=== PATIENT | female | born 1950 | race Caucasian/White ===

== ENCOUNTER 2018-04-14 11:32 | Emergency (ER) | payer OTHER ==
[2018-04-14 11:45] VITALS: TEMP 97.6; BMI 32.3
--- NOTE | 2018-04-14 12:12 | PDOC ---
History of Present Illness - History of Present Illness Initial Comments: 04/14/18 13:49 The patient is a 68 year old female, from [facility], with a significant PMH of seizure on Carbamazepine, last seizure was one year ago who presents to the ER s/p witnessed seizure early this morning. The aide is at bedside and providing the history as pt is nonverbal at baseline. As per the aide, the patient was sitting in a chair during breakfast and her eyes began rolling to the back of head. The episode was witnessed and the patient lost consciousness for 40 seconds but denies seeing any rani tonic clonic activities. Patient also had urinary incontinence. No falls. Patient is compliant to her Carbamazepine. Unknown if symptoms today are similar to her typical seizure. Patient is nonverbal at baseline but currently is at her normal baseline ( looking around, will respond to your basic requests) No apparent chest pain, shortness of breath, headache and dizzines, fever, chills, nausea, vomit, diarrhea and constipation. Allergies: NKA Past surgical history: None reported. Social history: No reported alcohol, drug, or cigarette use. <Digna Cruz - Last Filed: 04/14/18 13:48> - General History Source: Care Provider, EMS Exam Limitations: Physical Impairment <Brendan Aguilera - Last Filed: 04/14/18 16:15> - General Chief Complaint: Seizure Stated Complaint: SEIZURE Time Seen by Provider: 04/14/18 11:44 Past History <Digna Cruz - Last Filed: 04/14/18 13:48> - Past Medical History Hypercholesterolemia: Yes Seizures: Yes - Suicide/Smoking/Psychosocial Hx Smoking Status: No Smoking History: Unknown if ever smoked Have you smoked in the past 12 months: No Number of Cigarettes Smoked Daily: 0 Cigars Per Day: 0 Information on smoking cessation initiated: No Hx Alcohol Use: No Drug/Substance Use Hx: No Substance Use Type: None <Brendan Aguilera - Last Filed: 04/14/18 16:15> - Past Medical History Allergies/Adverse Reactions: Allergies Allergy/AdvReac Type Severity Reaction Status Date / Time Phenothiazines Allergy Intermediate Verified 04/14/18 12:58 Home Medications: Ambulatory Orders Docusate Sodium [Colace -] 100 mg PO BID 07/12/12 Famotidine [Pepcid -] 20 mg PO BID 07/12/12 Risperidone [Risperdal] 1 mg PO DAILY 07/12/12 Carbamazepine Xr [Tegretol XR -] 200 mg PO BID #0 tab.er.12h 07/13/12 Cholecalciferol (Vitamin D3) [Vitamin D3 -] 1,000 unit PO DAILY 01/11/18 Ibuprofen 400 mg PO TID 01/11/18 Review of Systems - Review of Systems Able to Perform ROS?: No Comments:: 04/14/18 13:49 History limited due to pt being nonverbal. <Digna Cruz - Last Filed: 04/14/18 13:48> *Physical Exam - Vital Signs Last Vital Signs Temp Pulse Resp BP Pulse Ox 97.6 F 67 16 106/73 96 04/14/18 11:39 04/14/18 11:39 04/14/18 11:39 04/14/18 11:39 04/14/18 11:39 - Physical Exam Comments: 04/14/18 13:51 GENERAL: The patient is awake, alert, Nontoxic - in no acute distress. HEAD: Normocephalic, atraumatic. EYES: extraocular movements intact, sclera anicteric, conjunctiva clear. ENT: Normal voice, Moist mucous membranes. NECK: Normal range of motion, supple LUNGS: Breath sounds equal, clear to auscultation bilaterally. No wheezes, no rhonchi, no rales. HEART: Regular rate and rhythm, normal S1 and S2 without murmur, rub or gallop. ABDOMEN: Soft, nontender, normoactive bowel sounds. No guarding, no rebound. No CVA tenderness EXTREMITIES: Normal range of motion, no edema. NEUROLOGICAL: No facial assymetry, movng all 5 extremities sponaneously and symmetrically, PSYCH: unable to asess SKIN: Warm, Dry, normal turgor, <Digna Cruz - Last Filed: 04/14/18 13:48> - Vital Signs Last Vital Signs Temp Pulse Resp BP Pulse Ox 97.6 F 67 16 106/73 96 04/14/18 11:39 04/14/18 11:39 04/14/18 11:39 04/14/18 11:39 04/14/18 11:39 <Brendan Aguliera - Last Filed: 04/14/18 16:15> Heart Score/ECG Review - ECG Impressions Comment:: 04/14/18 12:46 Twelve-lead EKG was performed and reviewed by me. There is normal sinus rhythm with a normal rate. Rate of 68 The axis is normal. The intervals are normal. There is normal R wave progression There are no ST or T wave abnormalities. Impression: Normal twelve-lead EKG <Brendan Aguilera - Last Filed: 04/14/18 16:15> ED Treatment Course - LABORATORY CBC & Chemistry Diagram: 04/14/18 12:24 04/14/18 12:52 - ADDITIONAL ORDERS Additional order review: Laboratory Results 04/14/18 12:52 Sodium 143 Potassium 3.7 Chloride 107 Carbon Dioxide 31 Anion Gap 5 L BUN 9 Creatinine 0.6 Creat Clearance w eGFR > 60 Random Glucose 159 H Calcium 8.7 Total Bilirubin < 0.1 L AST 9 L ALT 19 Alkaline Phosphatase 115 Total Protein 6.3 L Albumin 3.1 L 04/14/18 12:24 RBC 4.03 MCV 91.4 MCHC 32.8 RDW 13.2 MPV 8.3 Neutrophils % 62.3 D Lymphocytes % 23.1 D Monocytes % 8.4 Eosinophils % 5.9 H D Basophils % 0.3 <Digna Cruz - Last Filed: 04/14/18 13:48> - LABORATORY CBC & Chemistry Diagram: 04/14/18 12:24 04/14/18 12:52 <Brendan Aguilera - Last Filed: 04/14/18 16:15> Medical Decision Making - Medical Decision Making 04/14/18 12:12 68y F hx of seizures (last one 1 year ago, on carbamazepine) pw witnessed seizure lasting approx 40 seconds where her eyes rolled back but no notable convulsions. , with post ictal period per ems. +urinary incontinence. pt currently back at baseline. per aide, pt is compliant with her meds that are given to her. no notable infectious complaints recently. pts exam is baseline, neuro baseline will obtain blood work to r/o metabolic dernagement, ua to ro occult infection willobserve will dw pmd 04/14/18 16:13 pts labs reviewed unremarkable pt at baseline status case dw dr. Ahuja agree with management will have pt fu with her primary neurologist tegratol level sent return precautions were discussed I discussed the physical exam findings, ancillary test results and final diagnoses with the patient. I answered all of the patient's questions. The patient was satisfied with the care received and felt comfortable with the discharge plan and treatment plan. The patient will call their primary care physician within 24 hours to arrange follow-up and will return to the Emergency Department with any new, persistent or worsening symptoms. <Brendan Aguilera - Last Filed: 04/14/18 16:15> *DC/Admit/Observation/Transfer - Attestations Scribe Attestion: 04/14/18 13:51 Documentation prepared by Digna Cruz, acting as medical device engineer for Brendan Aguilera MD. <Digna Cruz - Last Filed: 04/14/18 13:48> - Discharge Dispostion Decision to Admit order: No <Brendan Aguilera - Last Filed: 04/14/18 16:15> Diagnosis at time of Disposition: Seizure - Discharge Dispostion Disposition: HOME Condition at time of disposition: Improved - Referrals Referrals: Ariana Ahuja MD [Staff Physician] - Bebo Barney MD [Staff Physician] - - Patient Instructions Printed Discharge Instructions: DI for Seizure Disorder -- Adult Additional Instructions: Return to the emergency department immediately with ANY new, persistent or worsening symptoms including any change from [place] as baseline mental status or other seizures. You MUST call and follow up with your doctor and neurologist next week for further evaluation of your symptoms. Results were discussed with you. Please make sure your doctor reviews the results of your emergency evaluation. Print Language: MALDIVIAN
[2018-04-14 12:59] LABS: BASO % 0.3 % (0-2.0); EOS % 5.9 % (0-4.5); HEMATOCRIT 36.8 % (32.4-45.2); HEMOGLOBIN 12.1 GM/dL (10.7-15.3); LYMPH % 23.1 % (8-40); MCHC 32.8 g/dl (32.0-36.0); MEAN CELL VOLUME 91.4 fl (80-96); MEAN PLT VOLUME 8.3 fl (7.5-11.1); MONO % 8.4 % (3.8-10.2); NEUT % 62.3 % (42.8-82.8); PLATELET COUNT 172 K/MM3 (134-434); RBC 4.03 M/mm3 (3.60-5.2); RDW 13.2 % (11.6-15.6); WHITE BLOOD COUNT 4.4 K/mm3 (4.0-10.0)
[2018-04-14 13:24] LABS: ALBUMIN 3.1 g/dl (3.4-5.0); ALK PHOS 115 U/L (45-117); ANION GAP 5 (8-16); BILIRUBIN,TOTAL < 0.1 mg/dL (0.2-1.0); BLOOD UREA NITROGEN 9 mg/dL (7-18); CALCIUM 8.7 mg/dL (8.5-10.1); CHLORIDE 107 mmol/L (98-107); CO2 31 mmol/L (21-32); CREATININE 0.6 mg/dL (0.55-1.02); GLUCOSE,RANDOM 159 mg/dL (74-106); POTASSIUM 3.7 mmol/L (3.5-5.1); SGOT/AST 9 U/L (15-37); SGPT/ALT 19 U/L (12-78); SODIUM 143 mmol/L (136-145); TOT PROT 6.3 g/dl (6.4-8.2)
[2018-04-14 15:21] LABS: URINE APPEARANCE CLEAR; URINE BILIRUBIN NEGATIVE (<2.0 mg/dL); URINE COLOR YELLOW; URINE GLUCOSE (UA) NEGATIVE (NEGATIVE); URINE KETONE NEGATIVE (NEGATIVE); URINE LEUK ESTERASE NEGATIVE (NEGATIVE); URINE NITRITE NEGATIVE (NEGATIVE); URINE UROBILINOGEN NEGATIVE mg/dL (0.2-1.0)
[2018-04-14 15:28] LABS: URINE PROTEIN 1+ (NEGATIVE)
[2018-04-14 15:31] LABS: EPI CELLS RARE /HPF (FEW); URINE BACTERIA FEW /hpf (NONE SEEN); URINE MUCUS RARE
[2018-04-14 16:24] VITALS: BP 106/68; PULSE 78
--- NOTE | 2018-04-15 08:58 | EKG ---
Test Reason : Blood Pressure : / mmHG Vent. Rate : 068 BPM Atrial Rate : 068 BPM P-R Int : 162 ms QRS Dur : 086 ms QT Int : 398 ms P-R-T Axes : 044 027 026 degrees QTc Int : 423 ms NORMAL SINUS RHYTHM NORMAL ECG WHEN COMPARED WITH ECG OF 13-JUL-2012 11:36, NO SIGNIFICANT CHANGE WAS FOUND Confirmed by VIPUL BANGURA MD ([id number]) on 04/15/2018 8:58:09 AM Referred By: Confirmed By:VIPUL BANGURA MD
== END 2018-04-14 16:22 | disposition home or self-care (01) ==
LOC: JER 11:32
DX: R56.9 Unspecified convulsions (principal)
CPT/HCPCS: 36415; 71045-TC-FY; 71046-TC-FY; 80053; 80156; 81003; 81015; 85025; 87086; 93005; 93010; 99284-25

== ENCOUNTER 2018-04-18 10:06 | Day surgery (SDC) | payer OTHER ==
[2018-04-17 11:19] VITALS: BMI 32.5
[2018-04-18 12:13] VITALS: TEMP 97.4
[2018-04-18 12:16] VITALS: BP 115/85; PULSE 77
== END 2018-04-18 12:30 | disposition home or self-care (01) ==
LOC: FASU-ENDO 10:06
PROVIDERS: ATTEND Internal Medicine Gastroenterology
PROC: 0DJD8ZZ Inspection of Lower Intestinal Tract, Via Natural or Artificial Opening Endoscopic (ICD-10-PCS; principal; 2018-04-18 11:21)
DX: Z12.11 Encounter for screening for malignant neoplasm of colon (principal); K64.8 Other hemorrhoids

== ENCOUNTER 2018-10-24 11:09 | Emergency (ER) | payer OTHER ==
[2018-10-24 11:18] VITALS: TEMP 97.8; BMI 32.3
--- NOTE | 2018-10-24 11:37 | PDOC ---
History of Present Illness - General Chief Complaint: Blood Pressure Problem Stated Complaint: BROUGHT IN FOR EVALUATION OF BLOOD PRESSURE Time Seen by Provider: 10/24/18 11:13 - History of Present Illness Initial Comments: 10/24/18 12:20 Chief complaint: Low blood pressure History of present illness: Patient is a resident of a [facility], and the staff noted this morning that her blood pressure was low. Reading upon awakening was 70/50, which improved to approximately 90/70. However this is lower than her usual, which ranges in the 120/80 range. The patient appears to be asymptomatic. There is been no vomiting or diarrhea. She is taking oral food and fluids adequately. Review of systems: The patient is mentally challenged but able to adequately communicate and denies pain or other symptoms Past medical history: Mental retardation, behavioral problems, Social history: Resident of [facility], stable environment, functions well, no tobacco alcohol or drugs Family history: Unavailable Physical exam: Patient is cheerful and cooperative, however, she is mentally challenged and confused as to place and time Afebrile, vital signs are now normal including orthostatic blood pressure and pulse readings HEENT clear. PERRLA. Fundi benign Neck supple without bruit mass or nodes Chest clear with full breath sounds throughout bilaterally CV regular without murmur rub or gallop pulses full and symmetric no JVD or edema no bruits Abdomen nondistended. Bowel sounds normal. Soft without mass tenderness organomegaly Neurological C2 to 12 intact. Strength full and symmetric. No focal sensory or motor deficits. Gait stable and unimpaired Impression: Transiently low blood pressure which is improved. No orthostatic changes at present, although there may be mild dehydration that resulted in blood pressure changes upon awakening Plan: Reassure. Adequate fluid intake and good nutrition. Recheck if further symptoms. Patient ambulatory and in no pain or other distress upon discharge with caregiver to follow-up as needed. Past History - Past Medical History Allergies/Adverse Reactions: Allergies Allergy/AdvReac Type Severity Reaction Status Date / Time Phenothiazines Allergy Intermediate Verified 04/14/18 12:58 Home Medications: Ambulatory Orders Docusate Sodium [Colace -] 100 mg PO BID 07/12/12 Famotidine [Pepcid -] 20 mg PO BID 07/12/12 Risperidone [Risperdal] 2 mg PO HS 07/12/12 Carbamazepine Xr [Tegretol XR -] 200 mg PO BID #0 tab.er.12h 07/13/12 Cholecalciferol (Vitamin D3) [Vitamin D3 -] 1,000 unit PO DAILY 01/11/18 Ibuprofen 400 mg PO TID 01/11/18 Ammonium Lactate Cream [Lac-Hydrin 12% *Cream*] 1 applic TP DAILY 10/24/18 Diclofenac Sodium [Diclofenac Sodium ER] 100 mg PO DAILY 10/24/18 Risperidone [Risperdal] 1 mg PO DAILY 10/24/18 Anemia: No Asthma: No Cancer: No Cardiac Disorders: No CVA: No COPD: No CHF: No Dementia: No Diabetes: No GI Disorders: No Disorders: No HTN: No Hypercholesterolemia: Yes Liver Disease: No Seizures: Yes Thyroid Disease: No Other medical history: OBESITY ,DEAFNESS, MOOD DISORDER, NON VERBAL MENTAL RETARDATION - Surgical History Cardiac Surgery: No Cholecystectomy: No GI Surgery: No Orthopedic Surgery: Yes (KNEE REPLACEMENT 2004) - Immunization History Immunization Up to Date: No - Suicide/Smoking/Psychosocial Hx Smoking Status: No Smoking History: Never smoked Have you smoked in the past 12 months: No Number of Cigarettes Smoked Daily: 0 Cigars Per Day: 0 Information on smoking cessation initiated: No Hx Alcohol Use: No Drug/Substance Use Hx: No Substance Use Type: None Hx Substance Use Treatment: No *Physical Exam - Vital Signs Last Vital Signs Temp Pulse Resp BP Pulse Ox 97.8 F 84 20 128/77 97 10/24/18 11:11 10/24/18 11:11 10/24/18 11:11 10/24/18 11:11 10/24/18 11:11 Moderate Sedation - Procedure Monitoring Vital Signs: Procedure Monitoring Vital Signs Temperature 97.8 F 10/24/18 11:11 Pulse Rate 84 10/24/18 11:11 Respiratory Rate 20 10/24/18 11:11 Blood Pressure 128/77 10/24/18 11:11 O2 Sat by Pulse Oximetry (%) 97 10/24/18 11:11 *DC/Admit/Observation/Transfer Diagnosis at time of Disposition: Blood pressure instability - Discharge Dispostion Disposition: HOME Condition at time of disposition: Improved Decision to Admit order: No - Referrals Referrals: Ariana Ahuja MD [Primary Care Provider] - 1 week - Patient Instructions Printed Discharge Instructions: How to Monitor Your Blood Pressure at Home Additional Instructions: Increase oral fluids, encourage good nutrition, observe. Recheck if further symptoms. - Post Discharge Activity
[2018-10-24 11:51] VITALS: BP 114/78; PULSE 85
== END 2018-10-24 12:03 | disposition home or self-care (01) ==
LOC: FER 11:09
DX: I99.8 Other disorder of circulatory system (principal); E66.9 Obesity, unspecified; Z68.32 Body mass index [BMI] 32.0-32.9, adult; Z96.659 Presence of unspecified artificial knee joint; H91.90 Unspecified hearing loss, unspecified ear; F79 Unspecified intellectual disabilities
CPT/HCPCS: 99281-25

== ENCOUNTER 2019-09-29 00:53 | Emergency (ER) | payer OTHER ==
--- NOTE | 2019-09-29 01:48 | PDOC ---
Attending Attestation - Resident Resident Name: Tommie Estes - ED Attending Attestation I have performed the following: I have examined & evaluated the patient, The case was reviewed & discussed with the resident, I agree w/resident's findings & plan - HPI HPI: 09/29/19 01:46 Pt comes with mechanical fall from her bed, when she attempted to get up and the bedsheets were wrapped around her legs, causing her to fall. - Physicial Exam PE: 10/04/19 20:02 Agree with resident exam - Medical Decision Making 09/29/19 04:27 Patient Name: NILTON HARTMAN THIS IS A PRELIMINARY REPORT FROM [facility] DATE OF SERVICE: 2019-09-29 02:47:27 IMAGES: [id number] EXAM: HEAD CT WITHOUT CONTRAST HISTORY: Patient fell COMPARISON: None. FINDINGS: No acute intracranial abnormality. No hemorrhage. 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 Osseous structures are intact. Note made of thickened calvarium. Patient Name: NILTON HARTMAN THIS IS A PRELIMINARY REPORT FROM [facility] DATE OF SERVICE: 2019-09-29 02:45:00 IMAGES: [id number] EXAM: CERVICAL SPINE CT W/O CONTR HISTORY: Patient fell COMPARISON: None. FINDINGS: Negative for cervical spine fracture or malalignment. Mild degenerative changes. Incidental note made of calcified mediastinal lymph nodes. Elbow XR w/o obvious pathology Pt ambulating in ED and at functional baseline per aid Plan for D/C w/ PCP f/u Discharge instructions and return precautions given Patient in agreement and verbalized understanding Dispo: Home
--- NOTE | 2019-09-29 01:48 | PDOC ---
History of Present Illness - General Chief Complaint: Injury Stated Complaint: FALL Time Seen by Provider: 09/29/19 01:35 - History of Present Illness Initial Comments: The pt is a 69F w/ a history of severe developmental delay (non-verbal at baseline) who presents for evaluation s/p unwitnessed fall at her alf. The aid providing the history states she heard a noise, checked on the pt, and found her down next to her bed with her legs tangled in her blanket. The aid reports at that time the pt was conscious and is currently at her functional baseline. The aid reports the only observed injury was a small abrasion to the right elbow that they cleaned and bandaged. Aid denies known history of recent illness, fevers, cough, congestion 09/29/19 01:43 Past History - Past Medical History Allergies/Adverse Reactions: Allergies Allergy/AdvReac Type Severity Reaction Status Date / Time Phenothiazines Allergy Intermediate Verified 09/29/19 01:58 Home Medications: Ambulatory Orders Docusate Sodium [Colace -] 100 mg PO BID 07/12/12 Famotidine [Pepcid -] 20 mg PO BID 07/12/12 Risperidone [Risperdal] 2 mg PO HS 07/12/12 Carbamazepine Xr [Tegretol XR -] 200 mg PO BID #0 tab.er.12h 07/13/12 Cholecalciferol (Vitamin D3) [Vitamin D3 -] 1,000 unit PO DAILY 01/11/18 Ibuprofen 400 mg PO TID 01/11/18 Ammonium Lactate Cream [Lac-Hydrin 12% *Cream*] 1 applic TP DAILY 10/24/18 Diclofenac Sodium [Diclofenac Sodium ER] 100 mg PO DAILY 10/24/18 Risperidone [Risperdal] 1 mg PO DAILY 10/24/18 Anemia: No Asthma: No Cancer: No Cardiac Disorders: No CVA: No COPD: No CHF: No Dementia: No Diabetes: No GI Disorders: No Disorders: No HTN: No Hypercholesterolemia: Yes Liver Disease: No Seizures: Yes Thyroid Disease: No - Surgical History Cardiac Surgery: No Cholecystectomy: No GI Surgery: No Orthopedic Surgery: Yes (KNEE REPLACEMENT 2004) - Immunization History Immunization Up to Date: No - Psycho Social/Smoking Cessation Hx Smoking Status: No Smoking History: Never smoked Have you smoked in the past 12 months: No Number of Cigarettes Smoked Daily: 0 Cigars Per Day: 0 Hx Alcohol Use: No Drug/Substance Use Hx: No Substance Use Type: None Hx Substance Use Treatment: No Review of Systems - Review of Systems Able to Perform ROS?: No (2/2 medical condition) *Physical Exam - Physical Exam GENERAL: Awake, alert HEAD: No signs of trauma, normoc ephalic, atraumatic EYES: PERRLA, EOMI, sclera anicteric, conjunctiva clear ENT: Hearing grossly normal, nares patent, oropharynx clear without exudates. Moist mucosa LUNGS: No distress, clear to auscultation bilaterally HEART: Regular rate and rhythm, normal S1 and S2, no murmurs appreciated, peripheral pulses normal and equal bilaterally ABDOMEN: Soft, no grimace to palpation, normoactive bowel sounds. No guarding, no rebound EXTREMITIES: Small abrasion to right lateral elbow w/o active hemorrhage, surrounding ecchymosis, or underlying bony crepitus NEUROLOGICAL: Cranial nerves II through XII grossly intact. Ambulating in ED, no focal sensorimotor deficits SKIN: Warm, Dry 09/29/19 01:45 ED Treatment Course - RADIOLOGY Radiology Studies Ordered: Category Date Time Status CERVICAL SPINE CT W/O CONTR [CT] Stat CT Scan 09/29/19 01:[address] WITHOUT CONTRAST [CT] Stat CT Scan 09/29/19 01:42 Ordered ELBOW-RIGHT [RAD] Stat Radiology 09/29/19 01:42 Ordered Radiograph Interpretation: THIS IS A PRELIMINARY REPORT FROM [facility] DATE OF SERVICE: 2019-09-29 02:47:27 EXAM: HEAD CT WITHOUT CONTRAST FINDINGS: No acute intracranial abnormality. No hemorrhage. 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 Osseous structures are intact. Note made of thickened calvarium. THIS IS A PRELIMINARY REPORT FROM [facility] DATE OF SERVICE: 2019-09-29 02:45:00 EXAM: CERVICAL SPINE CT W/O CONTR FINDINGS: Negative for cervical spine fracture or malalignment. Mild degenerative changes. Incidental note made of calcified mediastinal lymph nodes. 09/29/19 04:13 Medical Decision Making - Medical Decision Making The pt is a 69F w/ a history of severe developmental delay (non-verbal at baseline) who presents for evaluation s/p unwitnessed fall at her alf, likely mechanical ED Course CT head and c-spine R elbow XR 09/29/19 01:47 CT head and c-spine neg for acute fx/bleed Elbow XR w/o obvious pathology Pt ambulating in ED and at functional baseline per aid Plan for D/C w/ PCP f/u Discharge instructions and return precautions given Patient in agreement and verbalized understanding Dispo: Home 09/29/19 04:15 Discharge - Discharge Information Problems reviewed: Yes Clinical Impression/Diagnosis: Fall Qualifiers: Encounter type: initial encounter Qualified Code(s): W19.XXXA - Unspecified fall, initial encounter Condition: Stable Disposition: HOME - Admission No - Follow up/Referral Referrals: Ariana Ahuja MD [Primary Care Provider] - - Patient Discharge Instructions Patient Printed Discharge Instructions: How to Prevent Falls Additional Instructions: You were seen in the Emergency Department for evaluation after a fall. Your imaging was negative for acute findings. Review the handout provided at discharge. Follow up with your primary care provider within a week. For pain you may take Tylenol 650mg every 6 hours and Ibuprofen 600mg every 6-8 hours, alternating them each time. Return to the Emergency Department if you develop repeat falls, fevers, chest pain, trouble breathing, worsening pain, change in sensation, worsening symptoms , or any new/concerning symptoms. - Post Discharge Activity
[2019-09-29 02:13] VITALS: TEMP 98.1; BMI 31.3
[2019-09-29 04:28] VITALS: BP 124/77; PULSE 77
== END 2019-09-29 04:29 | disposition home or self-care (01) ==
LOC: JER 00:53
DX: S50.311A Abrasion of right elbow, initial encounter (principal); W06.XXXA Fall from bed, initial encounter; Y93.89 Activity, other specified; Y92.193 Bedroom in other specified residential institution as the place of occurrence of the external cause; Y99.8 Other external cause status; R62.59 Other lack of expected normal physiological development in childhood; Z88.8 Allergy status to other drugs, medicaments and biological substances
CPT/HCPCS: 70450-TC; 72125-TC; 73070-TC-RT-FY; 99281-25

== ENCOUNTER → 2019-10-21 | Day surgery (SDC) | payer OTHER ==
--- NOTE | 2019-10-23 15:59 | PATH ---
Surgical Pathology Report Patient Name: NILTON HARTMAN [facility]. Rec. #: [id number] /Age/Gender: 1950 (Age: 69) / F Account: [id number] Location: RADIOLOGY Taken: 10/21/2019 Received: 10/21/2019 Reported: 10/23/2019 [facility] [place] [facility] M.D. Andrew Ashikari, M.D. Specimen(s) Received BREAST, LEFT, 2:30, ULTRASOUND GUIDED CORE BIOPSY Clinical History Nonpalpable lesion Ultrasound findings: Suspicious, highly suspicious/malignant 1.9 cm, mass Final Diagnosis BREAST, LEFT, 2:30, ULTRASOUND GUIDED CORE BIOPSY: INVASIVE DUCTAL CARCINOMA, MODERATELY DIFFERENTIATED, WITH MICROPAPILLARY FEATURES, MEASURING AT LEAST 1 CM IN THIS MATERIAL. Comment: Immunohistochemical stain performed at [place], [place] ([id number]) and interpreted at [facility] show the tumor has peripheral staining with TABITHA in some areas. Findings discussed with Drs. Ahuja and John, 10/23/19. Results of Estrogen Receptor (ER) and Progesterone Receptor (ME) studies performed at [facility] are as follows: ER (clone [id number] mouse monoclonal antibody by [employer]): >95% nuclear staining with strong intensity (Positive). ME (clone16 mouse monoclonal antibody by [employer]): ~70% nuclear staining with strong intensity (Positive). Results of Her2 (IHC) & Ki-67 studies performed at [place], [place] ([id number]) are as follows: Her2 IHC (EP3 from [employer], formerly known as [id number], using Hernández Polymer Refine detection kit): 1+ (Negative). Ki-67: ~10% (Low proliferative index). Positive and negative controls (internal if applicable) show appropriate results. Formalin fixation and cold ischemic times are within current ASCO/CAP recommendations for ER, ME and Her2 testing. Electronically Signed Mayelin Arnold M.D. Gross Description Received in formalin labeled "left 2:30," are 3 jimenez-yellow and brown, cylindrical portions of fibroadipose tissue ranging from 1.0-1.3 cm in length and averaging 0.1 cm diameter. The specimens are submitted in toto in one cassette. Time to formalin fixation: Less than one minute Total formalin fixation time: Approximately 6 hours. 10/21/2019 [facility]10/21/2019
== END | disposition home or self-care (01) ==
LOC: JMAMMO-SUR 10:40
PROVIDERS: ATTEND Internal Medicine
PROC: 0H9U3ZX Drainage of Left Breast, Percutaneous Approach, Diagnostic (ICD-10-PCS; principal; 2019-10-21)
DX: C50.412 Malignant neoplasm of upper-outer quadrant of left female breast (principal); Z17.0 Estrogen receptor positive status [ER+]; N63.21 Unspecified lump in the left breast, upper outer quadrant
CPT/HCPCS: 19083; 76641-TC-LT; 76642-TC-LT; 77065-TC; 88305-TC; 88342-TC